=== PATIENT | male | born 2000 | race Caucasian/White ===

== ENCOUNTER 2018-06-18 11:03 | Emergency (ER) | payer OTHER ==
[2018-06-18 12:11] LABS: BASO # 0.1 10^3/uL (0.0-0.2); BASO % 0.9 % (0.0-1.0); EOS # 0.2 10^3/uL (0.0-0.50); EOS % 3.6 % (0.0-3.0); HEMATOCRIT 47.8 % (42.0-52.0); HEMOGLOBIN 16.4 g/dl (13.5-17.5); IMMATURE GRANULOCYTE % 0.2 % (0-3.0); LYMPH # 1.9 10^3/uL (1.5-6.5); LYMPH % 34.2 % (24.0-44.0); MEAN CORPUSCULAR HGB CONC 34.3 g/dl (32.0-36.5); MEAN CORPUSCULAR VOLUME 87.5 fl (80.0-96.0); MONO # 0.6 10^3/uL (0.0-0.8); MONO % 9.8 % (0.0-5.0); NEUTROPHILS # 2.9 10^3/uL (1.8-7.7); NEUTROPHILS % 51.3 % (36.0-66.0); PLATELET COUNT, AUTOMATED 242 10^3/uL (150-450); RED BLOOD COUNT 5.46 10^6/uL (4.30-6.10); RED CELL DISTRIBUTION WIDTH 11.9 % (11.5-14.5); WHITE BLOOD COUNT 5.6 10^3/uL (4.0-10.0)
[2018-06-18 12:43] LABS: ANION GAP 5 MEQ/L (8-16); BLOOD UREA NITROGEN 9 MG/DL (7-18); CALCIUM LEVEL 9.4 MG/DL (8.5-10.1); CARBON DIOXIDE LEVEL 31 MEQ/L (21-32); CHLORIDE LEVEL 105 MEQ/L (98-107); GLUCOSE, FASTING 73 MG/DL (70-100); POTASSIUM SERUM 4.4 MEQ/L (3.5-5.1); SODIUM LEVEL 141 MEQ/L (136-145)
== END 2018-06-18 14:23 | disposition home or self-care (01) ==
LOC: M ED 11:03
DX: K21.9 Gastro-esophageal reflux disease without esophagitis (principal); K27.9 Peptic ulcer, site unspecified, unspecified as acute or chronic, without hemorrhage or perforation; Z79.899 Other long term (current) drug therapy; Z88.5 Allergy status to narcotic agent; F17.210 Nicotine dependence, cigarettes, uncomplicated
CPT/HCPCS: 80048

== ENCOUNTER 2019-01-29 19:19 | Emergency (ER) | payer OTHER ==
[~2019-01-29] VITALS: Ht 175.3 cm; Wt 70.9 kg
[~2019-01-29 19:19] MED LIST: CYCL10TA PO; OMEP40CA2 PO
[2019-01-29 19:20] VITALS: BP 137/88
[2019-01-29] MEDS ORDERED: AZITHROMYCIN 250 MG TAB PO ONE (22:00)
[2019-01-29] MEDS ORDERED: LIDOCAINE 1% SDV 5 ML VIAL DILUENT ONE (22:00)
[2019-01-29] MEDS ORDERED: cefTRIAXone SOD 250 MG VIAL (J0696) IM ONE (22:00)
[2019-01-29 22:23] LABS: CHLAMYDIA DNA AMPLIFICATION POSITIVE (NEGATIVE); GC DNA AMPLIFICATION NEGATIVE (NEGATIVE)
== END 2019-01-29 23:18 | disposition home or self-care (01) ==
LOC: M ED 19:19
DX: A74.9 Chlamydial infection, unspecified (principal); G89.29 Other chronic pain; M54.5 Low back pain; Z72.0 Tobacco use; Z79.899 Other long term (current) drug therapy; Z88.5 Allergy status to narcotic agent
CPT/HCPCS: 81001; 87086; 87661; 96372; 99283; J0696

== ENCOUNTER 2019-04-18 09:48 | Emergency (ER) | payer OTHER ==
[~2019-04-18] VITALS: Ht 172.7 cm; Wt 68.2 kg
[2019-04-18 09:49] VITALS: BP 150/88
== END 2019-04-18 10:26 | disposition home or self-care (01) ==
LOC: M ED 09:48
DX: S01.111A Laceration without foreign body of right eyelid and periocular area, initial encounter (principal); Y04.8XXA Assault by other bodily force, initial encounter; Y92.89 Other specified places as the place of occurrence of the external cause; Y93.89 Activity, other specified; Y99.8 Other external cause status; M54.9 Dorsalgia, unspecified; F17.210 Nicotine dependence, cigarettes, uncomplicated; Z88.5 Allergy status to narcotic agent

== ENCOUNTER 2019-05-15 07:23 | Emergency (ER) | payer OTHER ==
[~2019-05-15] VITALS: Ht 175.3 cm; Wt 70.0 kg
[2019-05-15] MEDS ORDERED: NS 1,000 ML IV ONE (08:15)
[2019-05-15 08:55] LABS: BASO % 0.6 % (0.0-1.0); EOS % 0.6 % (0.0-3.0); HEMATOCRIT 46.2 % (42.0-52.0); HEMOGLOBIN 15.8 g/dl (13.5-17.5); LYMPH # 2.2 10^3/uL (1.5-5.0); LYMPH % 35.2 % (24.0-44.0); MEAN CORPUSCULAR HEMOGLOBIN 30.9 pg (27.0-33.0); MEAN CORPUSCULAR HGB CONC 34.2 g/dl (32.0-36.5); MEAN CORPUSCULAR VOLUME 90.4 fl (80.0-96.0); MONO # 0.6 10^3/uL (0.0-0.8); MONO % 9.9 % (0.0-5.0); NEUTROPHILS # 3.3 10^3/uL (1.5-8.5); NEUTROPHILS % 53.4 % (36.0-66.0); PLATELET COUNT, AUTOMATED 189 10^3/uL (150-450); RED BLOOD COUNT 5.11 10^6/uL (4.30-6.10); WHITE BLOOD COUNT 6.3 10^3/uL (4.0-10.0)
[2019-05-15 09:08] LABS: ALBUMIN 4.1 GM/DL (3.2-5.2); ALT/SGPT 31 U/L (12-78); BILIRUBIN,DIRECT 0.1 MG/DL (0.0-0.2); BILIRUBIN,TOTAL 0.4 MG/DL (0.2-1.0); BLOOD UREA NITROGEN 9 MG/DL (7-18); CALCIUM LEVEL 9.2 MG/DL (8.5-10.1); CARBON DIOXIDE LEVEL 30 MEQ/L (21-32); CHLORIDE LEVEL 106 MEQ/L (98-107); GLUCOSE, FASTING 83 MG/DL (70-100); LIPASE 107 U/L (73-393); POTASSIUM SERUM 3.9 MEQ/L (3.5-5.1); SODIUM LEVEL 141 MEQ/L (136-145); TOTAL PROTEIN 7.1 GM/DL (6.4-8.2)
[2019-05-15 09:51] LABS: INFLUENZA A AMPLIFICATION NEGATIVE (NEGATIVE); INFLUENZA B AMPLIFICATION NEGATIVE (NEGATIVE)
[2019-05-15] MEDS ORDERED: ONDANSETRON 4MG/2ML VIAL (J2405) IV ONE (10:45)
[2019-05-15 11:10] VITALS: BP 124/69
[2019-05-15] MEDS ORDERED: ONDA4TAB6 PO (11:20)
--- NOTE | 2019-05-15 20:42 | ECGEPIP ---
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
== END 2019-05-15 12:18 | disposition home or self-care (01) ==
LOC: M ED 07:23
DX: R11.2 Nausea with vomiting, unspecified (principal); R19.7 Diarrhea, unspecified; K82.9 Disease of gallbladder, unspecified; F17.210 Nicotine dependence, cigarettes, uncomplicated; Z88.5 Allergy status to narcotic agent
CPT/HCPCS: 80048; 80076; 81001; 83690; 85025; 87502; 93005; 96361; 96374; 99284; J2405

== ENCOUNTER 2019-08-15 11:28 | Emergency (ER) | payer OTHER ==
[~2019-08-15] VITALS: Ht 172.7 cm; Wt 77.1 kg
[2019-08-15 11:28] VITALS: BP 143/86
[~2019-08-15 11:28] MED LIST changes: -OMEP40CA2 PO; +OMEP40CA97 PO; +ONDA4TAB6 PO
== END 2019-08-15 12:46 | disposition left against medical advice (07) ==
LOC: M ED 11:28
DX: Z53.21 Procedure and treatment not carried out due to patient leaving prior to being seen by health care provider (principal)

== ENCOUNTER 2019-11-04 10:21 | Emergency (ER) | payer OTHER ==
[~2019-11-04] VITALS: Ht 172.7 cm; Wt 80.6 kg
[2019-11-04 10:22] VITALS: BP 143/86
[2019-11-04] MEDS ORDERED: KEFL500C17 PO (11:10)
--- NOTE | 2019-11-04 11:11 | REP ---
Clinical: Foreign body. Technique: AP and lateral views of the left forearm. Findings: There is a small 5 mm radiodense foreign body within the superficial subcutaneous tissues overlying the distal anteromedial forearm consistent with the given history of metal shaving. The osseous structures are intact without acute fracture or dislocation. No subcutaneous emphysema. Impression: Small 5 mm foreign body consistent with metal shaving as per history. Electronically Signed by Santino Fitzpatrick MD 11/04/2019 11:02 A
== END 2019-11-04 11:21 | disposition home or self-care (01) ==
LOC: M ED 10:21
DX: S50.852A Superficial foreign body of left forearm, initial encounter (principal); X18.XXXA Contact with other hot metals, initial encounter; Y92.89 Other specified places as the place of occurrence of the external cause; Y93.89 Activity, other specified; Y99.1 Military activity; F17.200 Nicotine dependence, unspecified, uncomplicated; Z88.5 Allergy status to narcotic agent